=== PATIENT | female | born 1965 | race Caucasian/White ===

== ENCOUNTER 2023-11-18 10:33 | Emergency (ER) | payer MEDICAID ==
[~2023-11-18] VITALS: Ht 152.4 cm; Wt 64.1 kg
[2023-11-18 10:36] VITALS: TEMP 98.3
[2023-11-18 11:11] LABS: BASO % 0.4 % (0.0-2.0); EOS # 0.1 K/mm3 (0.0-0.7); EOS % 1.1 % (0.0-4.0); GRAN # 5.3 K/mm3 (1.4-6.5); GRAN % 73.2 % (42.2-75.2); HEMATOCRIT 41.4 % (37.0-47.0); HEMOGLOBIN 13.1 g/dl (12.5-16.0); LYMPH # 1.3 K/mm3 (1.2-3.4); LYMPH % 18.6 % (20.0-51.0); MEAN CELL VOLUME 92 fl (80.0-100.0); MEAN CORPUSCULAR HEMOGLOBIN 29 pg (27-31); MEAN CORPUSCULAR HGB CONC 32 g/dl (33.0-37.0); MONO # 0.5 K/mm3 (0.1-0.6); MONO % 6.4 % (1.7-9.3); PLATELET COUNT 289 K/mm3 (130-400); RED BLOOD COUNT 4.51 M/mm3 (4.10-5.30)
[2023-11-18] MEDS ORDERED: NS 1,000 ML IV ONE (11:15)
[2023-11-18] MEDS ORDERED: diphenhydrAMINE 50 MG/ML 1 ML VIAL IV ONE (11:15)
[2023-11-18] MEDS ORDERED: methylPREDNISolone Sod Succ 125 MG/2 ML VIAL IV ONE (11:15)
[2023-11-18 11:25] LABS: ALBUMIN 3.9 g/dL (3.5-5.0); BILIRUBIN,TOTAL 0.4 mg/dL (0.2-1.2); CALCIUM 9.5 mg/dL (8.4-10.2); CREATININE, serum 0.67 mg/dL (0.57-1.11); POTASSIUM 3.6 mEq/L (3.5-4.5); TOTAL PROTEIN 7.2 g/dl (6.2-8.1)
[2023-11-18] MEDS ORDERED: PREDNISONE20 MG PO (12:26)
[2023-11-18] MEDS ORDERED: EPIPEN 2-PAK1 MG/ML IM (12:27)
[2023-11-18 12:37] VITALS: BP 110/71; PULSE 80
== END 2023-11-18 12:44 | disposition home or self-care (01) ==
LOC: COL.ER 10:33
PROVIDERS: Family Medicine
DX: T78.3XXA Angioneurotic edema, initial encounter (principal); I10 Essential (primary) hypertension; Z87.891 Personal history of nicotine dependence
CPT/HCPCS: J1200; J2919; J7030

== ENCOUNTER 2023-12-24 11:25 | Outpatient (RCR) | payer MEDICAID ==
[~2023-12-24 11:25] MED LIST: EPIPEN 2-PAK1 MG/ML IM; PREDNISONE20 MG PO
== END 2023-12-26 | disposition home or self-care (01) ==
LOC: COL.CR
DX: J44.9 Chronic obstructive pulmonary disease, unspecified (principal)

== ENCOUNTER → 2024-02-12 | Outpatient (CLI) | payer MEDICAID | LOC: COL.RAD 09:54 | DX: K21.9 Gastro-esophageal reflux disease without esophagitis (principal) ==